=== PATIENT | male | born 1965 | race African-American/Black ===

== ENCOUNTER 2025-01-13 18:05 | Inpatient (IN) | payer OTHER ==
[2025-01-13 18:24] VITALS: BMI 23.3
[2025-01-13] MEDS ORDERED: ACETAMINOPHEN 325 MG TABLET (FP) PO PRN (18:55)
[2025-01-13] MEDS ORDERED: IBUPROFEN 400 MG TABLET (FP) PO PRN (18:55)
[2025-01-13] MEDS ORDERED: POLYETHYLENE GLYCOL (HEALTHYLAX) 3350 17 GM PACKET PO PRN (18:55)
[2025-01-13] MEDS ORDERED: BENZONATATE 200 MG CAPSULE PO PRN (18:55)
[2025-01-13] MEDS ORDERED: guaiFENesin 600 MG TABLET.ER (FP) PO PRN (18:55)
[2025-01-13] MEDS ORDERED: LOPERAMIDE HCL 2 MG CAPSULE PO PRN (18:55)
[2025-01-13] MEDS ORDERED: MAG HYDROX/AL HYDROX/SIMETH 30 ML UNIT-DOSE CUP PO PRN (18:55)
[2025-01-13] MEDS ORDERED: NALOXONE (NARCAN) HCL 4 MG/0.1 ML SPRAY NS PRN (18:55)
[2025-01-13] MEDS ORDERED: BENZOCAINE/MENTHOL (CHLORASEPTIC ) LOZENGE MM PRN (18:55)
[2025-01-13] MEDS ORDERED: ONDANSETRON *ODT* 4 MG TABLET SL PRN (18:55)
[2025-01-13] MEDS ORDERED: DICYCLOMINE HCL 10 MG CAPSULE PO PRN (18:55)
[2025-01-13] MEDS ORDERED: MAGNESIUM HYDROX 2400MG/30ML ORAL SUSPENSION 30 ML CUP PO PRN (18:55)
[2025-01-13] MEDS ORDERED: BISMUTH SUBSALICYLATE 524 MG/30 ML PO PRN (18:55)
[2025-01-13] MEDS ORDERED: IBUPROFEN 600 MG TABLET (FP) PO PRN (18:55)
[2025-01-13] MEDS: METHOCARBAMOL 500 MG TABLET PO PRN (21:22)
[2025-01-13] MEDS: hydrOXYzine PAMOATE 25 MG CAPSULE (FP) PO PRN (21:23)
[2025-01-13] MEDS: THIAMINE 100 MG TABLET PO SCH (21:23)
[2025-01-13] MEDS: MELATONIN 5 MG TABLETS PO SCH (21:23)
[2025-01-14] MEDS ORDERED: methaDONE HCL 10 MG TABLET (FOR DETOX USE ONLY) PO PRN (08:12)
[2025-01-14] MEDS: MECLIZINE HCL 25 MG TABLET (FP) PO ONE ×2 (09:41→09:50)
[2025-01-14] MEDS: methaDONE HCL 10 MG TABLET (FOR DETOX USE ONLY) PO ONE ×2 (09:41→09:51)
[2025-01-14] MEDS: LISINOPRIL 20 MG TABLET PO SCH (09:50)
[2025-01-14] MEDS: PRENATAL VITAMINS W/ FOLIC ACID TABLET (FP) PO SCH (09:50)
[2025-01-14] MEDS: PANTOPRAZOLE 40 MG TABLET PO SCH (09:50)
[2025-01-14] MEDS: amLODIPine BESYLATE 10 MG TABLET (FP) PO SCH (09:50)
[2025-01-14 14:52] LABS: HEMATOCRIT 37.3 % (40.1-51.0); HEMOGLOBIN 12.1 g/dL (13.7-17.5); MCHC 32.4 g/dl (32.3-36.5); MEAN CELL VOLUME 89.9 fl (79.0-92.2); MEAN PLT VOLUME 12.2 fl (9.4-12.4); PLATELET COUNT 198 x10^3/uL (163-337); RDW 13.2 % (12.2-16.4)
[2025-01-14 14:59] LABS: CHLORIDE 106 mmol/L (98-107); POTASSIUM 4.9 mmol/L (3.5-5.1); SODIUM 139 mmol/L (136-145)
[2025-01-14 15:15] LABS: ALBUMIN 3.3 g/dl (3.4-5.0); ANION GAP 4 mmol/L (4-13); BLOOD UREA NITROGEN 30.3 mg/dL (7-18); CALCIUM 9.2 mg/dL (8.5-10.1); CO2 29 mmol/L (21-32); GLUCOSE,RANDOM 90 mg/dL (74-106)
[2025-01-14 15:19] LABS: CREATININE 1.5 mg/dL (0.55-1.3); SGOT/AST 24 U/L (15-37); SGPT/ALT 23 U/L (13-61)
[2025-01-14 15:21] LABS: BILIRUBIN,TOTAL 0.5 mg/dL (0.2-1)
[2025-01-14 15:22] LABS: ALK PHOS 75 U/L (45-117)
[2025-01-15] MEDS: methaDONE HCL 10 MG TABLET (FOR DETOX USE ONLY) PO ONE (09:26)
[2025-01-15] MEDS: cloNIDine HCL 0.1 MG TABLET PO PRN (22:19)
[2025-01-17] MEDS: methaDONE HCL 10 MG TABLET (FOR DETOX USE ONLY) PO ONE (09:42)
[2025-01-19] MEDS: methaDONE HCL 10 MG TABLET (FOR DETOX USE ONLY) PO ONE (10:01)
[2025-01-20 09:17] VITALS: BP 149/81; PULSE 69; RESP 18; TEMP 97.8
== END 2025-01-20 10:34 | disposition other institution (70) | DRG 773 ==
LOC: YASAS 18:05 → Y3N 19:12
PROVIDERS: ADMIT Allergy & Immunology; ATTEND Allergy & Immunology
PROC: HZ2ZZZZ Detoxification Services for Substance Abuse Treatment (ICD-10-PCS; principal; 2025-01-13)
DX: F11.23 Opioid dependence with withdrawal (principal); F14.20 Cocaine dependence, uncomplicated; F19.282 Other psychoactive substance dependence with psychoactive substance-induced sleep disorder; F19.24 Other psychoactive substance dependence with psychoactive substance-induced mood disorder; I10 Essential (primary) hypertension; K21.9 Gastro-esophageal reflux disease without esophagitis; M54.50 Low back pain, unspecified; G89.29 Other chronic pain; Z87.891 Personal history of nicotine dependence; Z86.19 Personal history of other infectious and parasitic diseases
CPT/HCPCS: 36415; 80053; 80305; 80307; 85027; 86780; 93005; 93010

== ENCOUNTER 2025-01-20 10:36 | Inpatient (IN) | payer OTHER ==
[2025-01-20] MEDS ORDERED: BENZONATATE 200 MG CAPSULE PO PRN (10:56)
[2025-01-20] MEDS ORDERED: NALOXONE (NARCAN) HCL 4 MG/0.1 ML SPRAY NS PRN (10:56)
[2025-01-20] MEDS ORDERED: MAGNESIUM HYDROX 2400MG/30ML ORAL SUSPENSION 30 ML CUP PO PRN (10:56)
[2025-01-20] MEDS ORDERED: LOPERAMIDE HCL 2 MG CAPSULE PO PRN (10:56)
[2025-01-20] MEDS ORDERED: POLYETHYLENE GLYCOL (HEALTHYLAX) 3350 17 GM PACKET PO PRN (10:56)
[2025-01-20] MEDS ORDERED: BENZOCAINE/MENTHOL (CHLORASEPTIC ) LOZENGE MM PRN (10:56)
[2025-01-20] MEDS ORDERED: NICOTINE POLACRILEX 2 MG LOZENGE BC PRN (10:56)
[2025-01-20] MEDS ORDERED: IBUPROFEN 600 MG TABLET (FP) PO PRN (10:56)
[2025-01-20] MEDS ORDERED: NALOXONE HCL 0.4 MG/ML VIAL IVPUSH PRN (10:56)
[2025-01-20] MEDS ORDERED: MAG HYDROX/AL HYDROX/SIMETH 30 ML UNIT-DOSE CUP PO PRN (10:56)
[2025-01-20] MEDS ORDERED: guaiFENesin 600 MG TABLET.ER (FP) PO PRN (10:56)
[2025-01-20] MEDS ORDERED: IBUPROFEN 400 MG TABLET (FP) PO PRN (10:56)
[2025-01-20] MEDS ORDERED: NICOTINE POLACRILEX 2 MG GUM BUC PRN (10:56)
[2025-01-20] MEDS: MELATONIN 5 MG TABLETS PO SCH (21:38)
[2025-01-20] MEDS: THIAMINE 100 MG TABLET PO SCH (21:38)
[2025-01-20] MEDS: METHOCARBAMOL 500 MG TABLET PO PRN (21:38)
[2025-01-21] MEDS: amLODIPine BESYLATE 10 MG TABLET (FP) PO SCH (11:00)
[2025-01-21] MEDS: PRENATAL VITAMINS W/ FOLIC ACID TABLET (FP) PO SCH (11:00)
[2025-01-21] MEDS: LISINOPRIL 20 MG TABLET PO SCH (11:00)
[2025-01-21] MEDS: PANTOPRAZOLE 40 MG TABLET PO SCH (11:00)
[2025-01-22] MEDS: SUVOREXANT 10 MG TABLET PO PRN (21:31)
[2025-01-25] MEDS: SUVOREXANT 10 MG TABLET PO PRN (21:22)
[2025-01-29 02:15] VITALS: BMI 23.5
[2025-01-29] MEDS: SUVOREXANT 10 MG TABLET PO PRN (22:18)
[2025-01-30] MEDS: ACETAMINOPHEN 325 MG TABLET (FP) PO PRN (15:52)
[2025-02-02] MEDS: SUVOREXANT 10 MG TABLET PO PRN (21:29)
[2025-02-03 22:06] VITALS: RESP 18
[2025-02-04 06:55] VITALS: TEMP 97.9
[2025-02-04 09:07] VITALS: BP 141/75; PULSE 80
== END 2025-02-04 10:10 | disposition home or self-care (01) | DRG 772 ==
LOC: YASAS 10:36 → Y3NR 10:38 → Y5N 01-21 11:14
PROVIDERS: ADMIT Neuromusculoskeletal Medicine & OMM; ATTEND Psychiatry & Neurology Pain Medicine
PROC: HZ42ZZZ Group Counseling for Substance Abuse Treatment, Cognitive-Behavioral (ICD-10-PCS; principal; 2025-01-20)
DX: F11.20 Opioid dependence, uncomplicated (principal); F14.10 Cocaine abuse, uncomplicated; F17.210 Nicotine dependence, cigarettes, uncomplicated; F19.282 Other psychoactive substance dependence with psychoactive substance-induced sleep disorder; G47.00 Insomnia, unspecified; I10 Essential (primary) hypertension
CPT/HCPCS: 87811